=== PATIENT | male | born 1995 | race Two or more races ===

== ENCOUNTER 2018-08-18 12:37 | Emergency (ER) | payer SELFPAY ==
[~2018-08-18] VITALS: Ht 167.6 cm; Wt 84.8 kg
[2018-08-18 13:10] VITALS: BP 135/76; Ht 167.6 cm; Wt 84.8 kg
== END 2018-08-18 15:09 | disposition home or self-care (01) ==
LOC: ED 12:37
DX: Z03.89 Encounter for observation for other suspected diseases and conditions ruled out (principal)